=== PATIENT | male | born 1965 | race Caucasian/White ===

== ENCOUNTER 2019-07-04 20:00 | Emergency (ER) | payer OTHER ==
--- NOTE | 2019-07-04 22:04 | ED ---
Throat Pain/Nasal Congestion - HPI Summary HPI Summary: The patient is a 54 y/o male presenting to [facility] accompanied by female with a chief complaint of dysphonia and elevated blood pressure worsening today. He reports that approximately a month ago, he began having laryngitis accompanied by rhinorrhea, sore throat, and lethargy. After these symptoms persisted, he went to his PCP who prescribed him Azithromycin for possible respiratory infection. His symptoms improved but did not resolve until the dosage was increased. Five days ago, he had periodontal work, and he has since noticed issues with his voice again that has since persisted without any sore throat. Today, he noticed elevated SBP of 190 mmHg with an episode of mild chest discomfort that resolved quickly. He is medication-compliant with Atenolol. He also endorses nonproductive cough, diaphoresis, headache, and numbness of the arms. He denies any nausea, diarrhea, or abdominal pain. He has not seen an ENT specialist for his symptoms yet. Symptoms currently rated 3/10 in severity. He notes extensive history of sinus infections and seasonal allergies. PMHx: HTN, GERD, pre-diabetic. Current smoker, rare EtOH, no substance use. Medications reviewed. Allergies noted. - History of Current Complaint Chief Complaint: EDThroatPain Time Seen by Provider: 07/04/19 21:56 Hx Obtained From: Patient Onset/Duration: Lasting Days - last 5 days, Still Present, Worse Since - today with eleavted BP Severity: Moderate Associated Signs And Symptoms: Positive: Hoarseness Cough: Nonproductive Related History: Seasonal Allergies, Smoking, Other (Noted In Comments) - mx sinus infections - Allergies/Home Medications Allergies/Adverse Reactions: Allergies Allergy/AdvReac Type Severity Reaction Status Date / Time MS Tetracycline Allergy Intermediate Rash Verified 06/14/14 13:26 [Tetracycline] amoxicillin Allergy Numbness Verified 07/04/19 20:07 And Tingling INHALERS AdvReac Intermediate Agitation Uncoded 06/14/14 13:26 Home Medications: Home Medications Omeprazole 20 mg PO DAILY 07/04/19 [History Confirmed 07/04/19] atenoloL [Atenolol] 75 mg PO BEDTIME 07/04/19 [History Confirmed 07/04/19] PMH/Surg Hx/FS Hx/Imm Hx Endocrine/Hematology History: Reports: Hx Diabetes - pre-diabetic Denies: Hx Anticoagulant Therapy, Hx Thyroid Disease Cardiovascular History: Reports: Hx Hypertension - new onset, no tx Denies: Hx Pacemaker/ICD Respiratory History: Denies: Hx Asthma, Hx Chronic Obstructive Pulmonary Disease (COPD) GI History: Reports: Hx Gastroesophageal Reflux Disease History: Denies: Hx Renal Disease Neurological History: Denies: Hx Dementia, Hx Seizures - Surgical History Surgical History: Yes Surgery Procedure, Year, and Place: dental work Infectious Disease History: No Infectious Disease History: Denies: Hx Hepatitis, Hx Human Immunodeficiency Virus (HIV), Traveled Outside the [place] in Last 30 Days - Family History Known Family History: Positive: Other - GERD - Social History Alcohol Use: Rare Hx Substance Use: No Substance Use Type: Reports: None Hx Tobacco Use: Yes Smoking Status (MU): Current Every Day Smoker Review of Systems Positive: Skin Diaphoresis Positive: Other - dysphonia. Negative: Sore Throat Positive: Chest Pain - midl discomfort Positive: Cough - nonproductive Negative: Abdominal Pain, Diarrhea, Nausea Positive: Headache, Numbness - arms All Other Systems Reviewed And Are Negative: Yes Physical Exam - Summary Physical Exam Summary: Appearance: Well-appearing, Obese male, lying in bed comfortably, no acute distress Skin: Warm, dry, no obvious rash Eyes: sclera anicteric, no conjunctival pallor ENT: mucous membranes moist, pharynx appears normal Neck: Supple, nontender Respiratory: Clear to auscultation, no signs of respiratory distress Cardiovascular: Normal S1, S2. No murmurs. Normal distal pulses in tibial and radial bilaterally. Abdomen: Soft, nontender, normal active bowel sounds present Musculoskeletal: Normal, Strength/ROM Intact Neurological: A&Ox3, awake and alert, mentation is normal, speech is fluent and appropriate Psychiatric: affect is normal, does not appear anxious or depressed Triage Information Reviewed: Yes Vital Signs On Initial Exam: Initial Vitals Temp Pulse Resp BP Pulse Ox 98.2 F 82 15 190/109 96 07/04/19 20:06 07/04/19 20:06 07/04/19 20:06 07/04/19 20:06 07/04/19 20:06 Vital Signs Reviewed: Yes Procedures - Sedation Patient Received Moderate/Deep Sedation with Procedure: No Diagnostics - Vital Signs Vital Signs Temp Pulse Resp BP Pulse Ox 07/04/19 20:06 98.2 F 82 15 190/109 96 - Laboratory Lab Statement: Any lab studies that have been ordered have been reviewed, and results considered in the medical decision making process. - EKG 2010 Cardiac Rate: NL - 69 BPM EKG Rhythm: Sinus Rhythm Summary of EKG Findings: NSR at 69 BPM, P waves, QRS complex, and T waves are within normal limits, T waves and intervals are normal, no ischemic changes. This is a normal EKG. ED physician has reviewed and interpreted this EKG. EENT Course/Dx - Course Course Of Treatment: 54 y/o male presenting with dysphonia beginning a month ago that resolved with abx for respiratory infection but returned following periodontal work five days ago and worsening today with elevated blood pressure , diaphoresis, mild chest discomfort, and numbness in the arms. Denies any abdominal pain, nausea, or diarrhea. History of hypertension with compliance of Atenolol use. Physical exam is benign for acute findings. EKG at 2010 reveals NSR at 69 BPM without ischemic changes. Patient is clear for discharge. He is advised to follow up with ENT for dysphonia and his PCP for changes concerning hypertension. Patient understands and agrees with plan. - Diagnoses Provider Diagnoses: Hypertension, Dysphonia Discharge ED - Sign-Out/Discharge Documenting (check all that apply): Patient Departure - Patient will be discharged home. - Discharge Plan Condition: Good Disposition: HOME Patient Education Materials: Laryngitis (ED), Chronic Hypertension (ED) Referrals: Clemente Murrell MD [Medical Doctor] - Additional Instructions: Since this disturbance in phonation, in your voice, has persisted with time despite empiric antibiotics, I think you should see an ENT doctor. They can check out your voicebox quite thoroughly with equipment in the office and that will guide therapy to get things better. Dr. Murrell is our evaluation specialist ENT doctor jordy, so I have given you his contact information, you can call the office in the am to schedule and appt. With respect to your blood pressure, I don't think that requires any specific acute treatment. If it remains elevated over time your doctor may adjust your medication, but that is best managed by him or her. - Billing Disposition and Condition Condition: GOOD Disposition: Home - Attestation Statements Document Initiated by Scribe: Yes Documenting Scribe: Soraya Cedillo Provider For Whom Scribe is Documenting (Include Credential): Dr. Alli Savage MD Scribe Attestation: I, Soraya Cedillo scribed for Dr. Alli Savage MD on 07/05/19 at 0126. Scribe Documentation Reviewed: Yes Provider Attestation: The documentation as recorded by the Soraya tim accurately reflects the service I personally performed and the decisions made by me, Dr. Alli Savage MD Status of Scralex Document: Viewed
[2019-07-04 22:26] VITALS: BP 176/93
== END 2019-07-04 22:20 | disposition home or self-care (01) ==
LOC: ED 20:00
DX: I10 Essential (primary) hypertension (principal); R49.0 Dysphonia; R73.03 Prediabetes; K21.9 Gastro-esophageal reflux disease without esophagitis; Z88.1 Allergy status to other antibiotic agents; Z88.0 Allergy status to penicillin; Z88.8 Allergy status to other drugs, medicaments and biological substances; F17.200 Nicotine dependence, unspecified, uncomplicated
CPT/HCPCS: 93005; 99282